=== PATIENT | female | born 1945 | race Asian ===

== ENCOUNTER 2025-02-06 14:20 | Emergency (ER) | payer MEDICARE, OTHER ==
[~2025-02-06] VITALS: Ht 157.5 cm; Wt 59.1 kg
[~2025-02-06 14:20] MED LIST: ACET-2080 PO; IBUP-1554 PO
[2025-02-06 14:43] VITALS: BP 147/70; PULSE 67; RESP 16; TEMP 98; O2SAT 96
[2025-02-06 16:26] LABS: APPEARANCE,URINE CLEAR (CLEAR); GLUCOSE, URINE (UA) >=1000 mg/dL (NEGATIVE); LEUKOCYTE ESTERASE ,URINE SMALL (NEGATIVE); NITRATE,URINE NEGATIVE (NEGATIVE); OCCULT BLOOD,URINE NEGATIVE (NEGATIVE); SPECIFIC GRAVITIY, URINE 1.011 (1.003-1.030)
[2025-02-06 16:45] LABS: SQUAMOUS EPITHELIAL CELL,UR Rare /LPF (None Seen)
[2025-02-06] MEDS ORDERED: FLUC40SU PO (17:50)
[2025-02-06] MEDS: FLUCONAZOLE 150 MG TABLET PO ONE (17:58)
[2025-02-06] MEDS ORDERED: FLUC150T61 PO (18:03)
== END 2025-02-06 18:20 | disposition home or self-care (01) ==
LOC: EMS 14:20
DX: B37.31 Acute candidiasis of vulva and vagina (principal); E11.9 Type 2 diabetes mellitus without complications; I10 Essential (primary) hypertension; L29.9 Pruritus, unspecified; R30.0 Dysuria; Z79.899 Other long term (current) drug therapy
CPT/HCPCS: 81001; 87077; 87086; 87186; 99283